=== PATIENT | male | born 1985 | race Caucasian/White ===

== ENCOUNTER 2017-11-30 20:06 | Emergency (ER) | payer OTHER, BC ==
[2017-11-30 20:59] VITALS: BP 144/85; PULSE 79; RESP 20; TEMP 98.3
[2017-11-30] MEDS ORDERED: IBUPROFEN 400 MG TAB PO STA (21:40)
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
== END 2017-11-30 22:40 | disposition home or self-care (01) ==
LOC: EC 20:06
DX: S39.012A Strain of muscle, fascia and tendon of lower back, initial encounter (principal); V49.49XA Driver injured in collision with other motor vehicles in traffic accident, initial encounter; X50.0XXA Overexertion from strenuous movement or load, initial encounter; Y92.89 Other specified places as the place of occurrence of the external cause; Y93.89 Activity, other specified
CPT/HCPCS: 72100; 99284

== ENCOUNTER 2018-09-20 19:50 | Emergency (ER) | payer BC, OTHER ==
[2018-09-20 20:08] VITALS: TEMP 98.6
[2018-09-20] MEDS ORDERED: KETOROLAC 30 MG/ML 1 ML VIAL IM STA (21:09)
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
[2018-09-20 22:27] VITALS: BP 125/80; PULSE 85; RESP 16
== END 2018-09-20 22:25 | disposition home or self-care (01) ==
LOC: EC 19:50
DX: M54.5 Low back pain (principal); V49.59XA Passenger injured in collision with other motor vehicles in traffic accident, initial encounter; Y92.410 Unspecified street and highway as the place of occurrence of the external cause
CPT/HCPCS: 72131; 99284; 96372; J1885

== ENCOUNTER 2019-04-27 13:13 | Emergency (ER) | payer BC, OTHER ==
[2019-04-27 13:22] VITALS: TEMP 97.8
--- NOTE | 2019-04-27 14:19 | ED ---
General Adult HPI - General Chief complaint: Chest Pain Stated complaint: patient states he keeps passing out Time Seen by Provider: 04/27/19 14:00 Source: patient, RN notes reviewed, old records reviewed Mode of arrival: wheelchair Limitations: no limitations - History of Present Illness Initial comments: This is a 33-year-old male who presents to the emergency department complaining of almost passing out the shower. Patient states last night he was in the shower and all of a sudden he got lightheaded and fell out of the shower. Patient states he never actually went completely unresponsive but breathing did go black for just a second. Patient states he bumped the right side of his head but it does not hurt. Patient denies any neck pain patient isn't numbness weakness. Patient denies any palpitations. Patient denies any chest pain currently patient states he has had some episodes of sharp chest pain on the left that lasted a few seconds over the last few days but nothing that is been longer than a few seconds. Patient denies any difficulty breathing or shortness of breath. Patient states currently he is asymptomatic. Patient states this morning he had another episode where he felt a little lightheaded and that concerned so decided come to the emergency department. Patient states he has some right-sided scalp tenderness from where he bumped his head but it's very minimal. - Related Data Home Medications Medication Instructions Recorded Confirmed Baclofen 10 mg PO HS PRN 11/30/17 09/20/18 Previous Rx's Medication Instructions Recorded Cyclobenzaprine [Flexeril] 10 mg PO TID PRN #15 tab 09/20/18 Allergies Allergy/AdvReac Type Severity Reaction Status Date / Time No Known Allergies Allergy Verified 04/27/19 13:21 Review of Systems ROS Statement: Those systems with pertinent positive or pertinent negative responses have been documented in the HPI. ROS Other: All systems not noted in ROS Statement are negative. Past Medical History Past Medical History: No Reported History Additional Past Medical History / Comment(s): back pain History of Any Multi-Drug Resistant Organisms: None Reported Past Surgical History: Adenoidectomy, Tonsillectomy Past Psychological History: No Psychological Hx Reported Smoking Status: Never smoker Past Alcohol Use History: Occasional Past Drug Use History: None Reported General Exam - General Exam Comments Initial Comments: GENERAL: Patient is well-developed and well-nourished. Patient is nontoxic and well- hydrated and is in no acute distress. ENT: Neck is soft and supple. No significant lymphadenopathy is noted. Oropharynx is clear. Moist mucous membranes. Neck has full range of motion without eliciting any pain. EYES: The sclera were anicteric and conjunctiva were pink and moist. Extraocular movements were intact and pupils were equal round and reactive to light. Eyelids were unremarkable. PULMONARY: Unlabored respirations. Good breath sounds bilaterally. No audible rales rhonchi or wheezing was noted. CARDIOVASCULAR: There is a regular rate and rhythm without any murmurs gallops or rubs. ABDOMEN: Soft and nontender with normal bowel sounds. No palpable organomegaly was noted. There is no palpable pulsatile mass. SKIN: Skin is clear with no lesions or rashes and otherwise unremarkable. NEUROLOGIC: Patient is alert and oriented x3. Cranial nerves II through XII are grossly intact. Motor and sensory are also intact. Normal speech, volume and content. Symmetrical smile. MUSCULOSKELETAL: Normal extremities with adequate strength and full range of motion. No lower extremity swelling or edema. No calf tenderness. LYMPHATICS: No significant lymphadenopathy is noted PSYCHIATRIC: Normal psychiatric evaluation. Limitations: no limitations Course Vital Signs 04/27/19 04/27/19 04/27/19 13:18 14:35 15:21 Temperature 97.8 F Pulse Rate 75 69 Pulse Rate [ 80 Sitting] Pulse Rate [ 73 Standing] Pulse Rate [ 75 Supine] Respiratory 18 16 Rate Blood Pressure 111/75 108/69 Blood Pressure 106/64 [Sitting] Blood Pressure 116/89 [Standing] Blood Pressure 117/76 [Supine] O2 Sat by Pulse 96 98 Oximetry Medical Decision Making - Medical Decision Making Patient's orthostatics were normal. Patient did have however have a vasovagal episode when the IV was being started. Chest shows no acute abnormality. Patient's been asymptomatic throughout his duration emergency department. - Lab Data Result diagrams: 04/27/19 14:45 04/27/19 14:45 Lab Results 04/27/19 04/27/19 04/27/19 Range/Units 14:45 14:45 14:45 WBC 7.4 (3.8-10.6) k/uL RBC 5.59 (4.30-5.90) m/uL Hgb 16.4 (13.0-17.5) gm/dL Hct 49.2 (39.0-53.0) % MCV 87.9 (80.0-100.0) fL MCH 29.3 (25.0-35.0) pg MCHC 33.3 (31.0-37.0) g/dL RDW 12.4 (11.5-15.5) % Plt Count 368 (150-450) k/uL Neutrophils % 62 % Lymphocytes % 26 % Monocytes % 7 % Eosinophils % 1 % Basophils % 3 % Neutrophils # 4.5 (1.3-7.7) k/uL Lymphocytes # 1.9 (1.0-4.8) k/uL Monocytes # 0.5 (0-1.0) k/uL Eosinophils # 0.1 (0-0.7) k/uL Basophils # 0.2 (0-0.2) k/uL PT 9.9 (9.0-12.0) sec INR 0.9 (<1.2) APTT 28.3 (22.0-30.0) sec Sodium 140 (137-145) mmol/L Potassium 4.3 (3.5-5.1) mmol/L Chloride 105 (98-107) mmol/L Carbon Dioxide 27 (22-30) mmol/L Anion Gap 8 mmol/L BUN 15 (9-20) mg/dL Creatinine 0.81 (0.66-1.25) mg/dL Est GFR (CKD-EPI)AfAm >90 (>60 ml/min/1.73 sqM) Est GFR (CKD-EPI)NonAf >90 (>60 ml/min/1.73 sqM) Glucose 100 H (74-99) mg/dL Calcium 9.7 (8.4-10.2) mg/dL Magnesium 2.1 (1.6-2.3) mg/dL Total Bilirubin 0.6 (0.2-1.3) mg/dL AST 31 (17-59) U/L ALT 45 (4-49) U/L Alkaline Phosphatase 64 (38-126) U/L Troponin I (0.000-0.034) ng/mL Total Protein 8.3 H (6.3-8.2) g/dL Albumin 4.9 (3.5-5.0) g/dL 04/27/19 Range/Units 14:45 WBC (3.8-10.6) k/uL RBC (4.30-5.90) m/uL Hgb (13.0-17.5) gm/dL Hct (39.0-53.0) % MCV (80.0-100.0) fL MCH (25.0-35.0) pg MCHC (31.0-37.0) g/dL RDW (11.5-15.5) % Plt Count (150-450) k/uL Neutrophils % % Lymphocytes % % Monocytes % % Eosinophils % % Basophils % % Neutrophils # (1.3-7.7) k/uL Lymphocytes # (1.0-4.8) k/uL Monocytes # (0-1.0) k/uL Eosinophils # (0-0.7) k/uL Basophils # (0-0.2) k/uL PT (9.0-12.0) sec INR (<1.2) APTT (22.0-30.0) sec Sodium (137-145) mmol/L Potassium (3.5-5.1) mmol/L Chloride (98-107) mmol/L Carbon Dioxide (22-30) mmol/L Anion Gap mmol/L BUN (9-20) mg/dL Creatinine (0.66-1.25) mg/dL Est GFR (CKD-EPI)AfAm (>60 ml/min/1.73 sqM) Est GFR (CKD-EPI)NonAf (>60 ml/min/1.73 sqM) Glucose (74-99) mg/dL Calcium (8.4-10.2) mg/dL Magnesium (1.6-2.3) mg/dL Total Bilirubin (0.2-1.3) mg/dL AST (17-59) U/L ALT (4-49) U/L Alkaline Phosphatase (38-126) U/L Troponin I <0.012 (0.000-0.034) ng/mL Total Protein (6.3-8.2) g/dL Albumin (3.5-5.0) g/dL Disposition Clinical Impression: Near syncope Disposition: HOME SELF-CARE Condition: Good Instructions (If sedation given, give patient instructions): Near Syncope (ED) Additional Instructions: Patient should follow-up with his doctor for further evaluation and a possible event monitor Is patient prescribed a controlled substance at d/c from ED?: No Referrals: Johanna Garvin MD [Primary Care Provider] - 1-2 days Time of Disposition: 15:46
[2019-04-27 14:55] LABS: Basophils # (A) 0.2 k/uL (0-0.2); Basophils % (A) 3 %; Eosinophils # (A) 0.1 k/uL (0-0.7); Eosinophils % (A) 1 %; HCT 49.2 % (39.0-53.0); HGB 16.4 gm/dL (13.0-17.5); Lymphocytes # (A) 1.9 k/uL (1.0-4.8); Lymphocytes % (A) 26 %; MCH 29.3 pg (25.0-35.0); MCHC 33.3 g/dL (31.0-37.0); MCV 87.9 fL (80.0-100.0); Mean Platelet Volume 6.5; Monocytes # (A) 0.5 k/uL (0-1.0); Monocytes % (A) 7 %; Neutrophils # (A) 4.5 k/uL (1.3-7.7); Neutrophils % (A) 62 %; Platelet Count 368 k/uL (150-450); RBC 5.59 m/uL (4.30-5.90); RDW 12.4 % (11.5-15.5); WBC 7.4 k/uL (3.8-10.6)
[2019-04-27 14:58] VITALS: RESP 16
[2019-04-27 15:05] LABS: ALT 45 U/L (4-49); AST 31 U/L (17-59); African American GFR (CKD) >90 (>60 ml/min/1.73 sqM); Albumin 4.9 g/dL (3.5-5.0); Alkaline Phosphatase 64 U/L (38-126); Anion Gap 8 mmol/L; Blood Urea Nitrogen 15 mg/dL (9-20); Calcium 9.7 mg/dL (8.4-10.2); Carbon Dioxide 27 mmol/L (22-30); Chloride 105 mmol/L (98-107); Glucose 100 mg/dL (74-99); Magnesium 2.1 mg/dL (1.6-2.3); Non-African American GFR(CKD) >90 (>60 ml/min/1.73 sqM); Potassium 4.3 mmol/L (3.5-5.1); Sodium 140 mmol/L (137-145); Total Bilirubin 0.6 mg/dL (0.2-1.3); Total Protein 8.3 g/dL (6.3-8.2)
[2019-04-27 15:08] LABS: INR 0.9 (<1.2); Partial Thromboplastin Time 28.3 sec (22.0-30.0); Prothrombin Time 9.9 sec (9.0-12.0)
--- NOTE | 2019-04-27 15:10 | XR ---
EXAMINATION TYPE: XR chest 2V DATE OF EXAM: 04/27/2019 COMPARISON: None INDICATION: Chest pain TECHNIQUE: Frontal and lateral views of the chest are obtained. FINDINGS: The heart size is normal. The pulmonary vasculature is normal. Minimal bilateral lung base platelike atelectasis is present.. IMPRESSION: 1. Mild bibasilar platelike atelectasis
[2019-04-27 15:23] VITALS: BP 117/76; PULSE 75
== END 2019-04-27 16:17 | disposition home or self-care (01) ==
LOC: EC 13:13
DX: R55 Syncope and collapse (principal); S09.90XA Unspecified injury of head, initial encounter; R07.9 Chest pain, unspecified; W18.2XXA Fall in (into) shower or empty bathtub, initial encounter; Y92.89 Other specified places as the place of occurrence of the external cause
CPT/HCPCS: 36415; 71046; 80053; 83735; 84484; 85025; 85610; 85730; 93005; 99285

== ENCOUNTER → 2019-05-06 | Outpatient (CLI) | payer BC ==
--- NOTE | 2019-05-08 17:00 | ECHOF ---
Referral Reason:Syncope R55 MEASUREMENTS -------- HEIGHT: 172.7 cm WEIGHT: 90.7 kg BP: RVIDd: 3.3 cm (< 3.3) IVSd: 0.8 cm (0.6 - 1.1) LVIDd: 4.3 cm (3.9 - 5.3) LVPWd: 1.0 cm (0.6 - 1.1) IVSs: 1.1 cm LVIDs: 3.5 cm LVPWs: 1.1 cm LA Diam: 3.4 cm (2.7 - 3.8) LAESV Index (A-L): 22.24 ml/m Ao Diam: 2.6 cm (2.0 - 3.7) AV Cusp: 1.8 cm (1.5 - 2.6) LA Diam: 3.6 cm (2.7 - 3.8) MV EXCURSION: 21.562 mm (> 18.000) MV EF SLOPE: 102 mm/s (70 - 150) EPSS: 0.3 cm MV E Joe: 0.58 m/s MV DecT: 196 ms MV A Joe: 0.63 m/s MV E/A Ratio: 0.92 RAP: 5.00 mmHg RVSP: 14.84 mmHg FINDINGS -------- Sinus rhythm. This was a technically good study. The left ventricular size is normal. Overall left ventricular systolic function is mildly impaired with, an EF between 45 - 50 %. The diastolic filling pattern is normal for the age of the patient 8 .58. The right ventricle is normal in size. The left atrial size is normal. Normal LA size by volume 22+/-6 ml/m2. The right atrial size is normal. The aortic valve is trileaflet, and appears structurally normal. No aortic stenosis or regurgitation. Mild mitral regurgitation is present. Mild tricuspid regurgitation present. Right ventricular systolic pressure is normal at < 35 mmHg. There is no evidence of pulmonary hypertension. There is no pulmonic regurgitation present. The aortic root size is normal. There is no pericardial effusion. CONCLUSIONS -------- 1. Sinus rhythm. 2. This was a technically good study. 3. The left ventricular size is normal. 4. Overall left ventricular systolic function is mildly impaired with, an EF between 45 - 50 %. 5. The diastolic filling pattern is normal for the age of the patient 8.58 6. The right ventricle is normal in size. 7. The left atrial size is normal. 8. Normal LA size by volume 22+/-6 ml/m2. 9. The right atrial size is normal. 10. Mild mitral regurgitation is present. 11. Mild tricuspid regurgitation present. 12. Right ventricular systolic pressure is normal at < 35 mmHg. 13. There is no evidence of pulmonary hypertension. 14. There is no pulmonic regurgitation present. 15. The aortic root size is normal. 16. There is no pericardial effusion. LINEN CLERK: Autumn Lopez RDCS
--- NOTE | 2019-05-18 07:51 | P.PN ---
Progress Note - Text Progress Note Date: 05/18/19 This is a report on the seven-day event monitor. Baseline her rhythm seemed to be sinus. Patient remained in sinus rhythm with episodes of sinus tachycardia. No ventricular arrhythmias are detected. Patient complained of chest pain, pressure, dizziness, lightheadedness, not correlating with any significant cardiac events. Final impression: #1. Sinus rhythm. #2 episodes of sinus tachycardia #3. Symptoms of chest pain, dizziness, not correlating with insignificant cardiac events
--- NOTE | 2019-05-19 16:45 | EM ---
This is a report on the seven-day event monitor. Baseline her rhythm seemed to be sinus. Patient remained in sinus rhythm with episodes of sinus tachycardia. No ventricular arrhythmias are detected. Patient complained of chest pain, pressure, dizziness, lightheadedness, not correlating with any significant cardiac events. Final impression: #1. Sinus rhythm. #2 episodes of sinus tachycardia #3. Symptoms of chest pain, dizziness, not correlating with insignificant cardiac events MTDD
== END | disposition home or self-care (01) ==
LOC: RADECHMAIN 12:26
PROVIDERS: ATTEND Internal Medicine
DX: I08.1 Rheumatic disorders of both mitral and tricuspid valves (principal); R55 Syncope and collapse
CPT/HCPCS: 93270; 93306

== ENCOUNTER 2019-06-09 11:35 | Day surgery (SDC) | payer BC ==
[2019-06-07 10:59] VITALS: BMI 31.0
[~2019-06-09 11:35] MED LIST: SODIUM CHLORIDE 0.9% 1,000 ML IV SCH
[2019-06-09] MEDS ORDERED: SODIUM CHLORIDE 0.9% 500 ML 500 ML IV ONE (11:57)
[2019-06-09 12:08] VITALS: BP 129/70; RESP 16; TEMP 97.8
[2019-06-09 14:00] VITALS: PULSE 65
--- NOTE | 2019-06-09 14:57 | P.PCN ---
Preoperative Diagnosis: Indication: Syncope Baseline 12-lead EKG shows sinus mechanism, history VT interval at the upper limits of normal, normal narrow QRS, normal ST segments, normal QT interval, no delta or epsilon waves Baseline blood pressures 121/78 mmHg, Baseline heart rate is 70 bpm. The patient was tilted upright at a 70 angle aspirin protocol. After 10 minutes, the patient's heart rate gradually increased and blood pressure suddenly dropped, lowest blood pressure was 70/40 and the patient felt like he was going to pass out. He was laid flat and his blood pressure returned to 123/68 and his pulse came down to the 70s. He felt much better after being laid flat. Impression Neurocardiogenic response to upright tilting Normal 12-lead EKG
== END 2019-06-09 14:18 | disposition home or self-care (01) ==
LOC: CATHEP 11:35
PROVIDERS: ATTEND Internal Medicine Clinical Cardiac Electrophysiology
DX: R55 Syncope and collapse (principal); I42.0 Dilated cardiomyopathy; R07.89 Other chest pain; Z79.899 Other long term (current) drug therapy
CPT/HCPCS: 93660

== ENCOUNTER → 2020-03-07 | Outpatient (CLI) | payer BC ==
[2020-03-07 14:48] LABS: Basophils # (A) 0.1 k/uL (0-0.2); Basophils % (A) 1 %; Eosinophils # (A) 0.1 k/uL (0-0.7); Eosinophils % (A) 1 %; HCT 50.7 % (39.0-53.0); HGB 16.9 gm/dL (13.0-17.5); Lymphocytes # (A) 2.5 k/uL (1.0-4.8); Lymphocytes % (A) 31 %; MCHC 33.4 g/dL (31.0-37.0); MCV 89.8 fL (80.0-100.0); Mean Platelet Volume 6.4; Monocytes # (A) 0.5 k/uL (0-1.0); Monocytes % (A) 6 %; Neutrophils # (A) 4.8 k/uL (1.3-7.7); Neutrophils % (A) 60 %; Platelet Count 397 k/uL (150-450); RBC 5.64 m/uL (4.30-5.90); RDW 12.1 % (11.5-15.5)
== END | disposition home or self-care (01) ==
LOC: LABPAT 13:15
PROVIDERS: ATTEND Student in an Organized Health Care Education/Training Program
DX: Z01.818 Encounter for other preprocedural examination (principal)
CPT/HCPCS: 36415; 85025

== ENCOUNTER 2020-03-09 11:32 | Day surgery (SDC) | payer BC ==
[2020-03-07 12:41] VITALS: BMI 31.0
[~2020-03-09 11:32] MED LIST changes: +DEXAMETHASONE SOD PHOSPHATE 4 MG/ML 1 ML VIAL IV ONE; +HEPARIN SODIUM,PORCINE 5,000 UNIT/ML 1 ML VIAL SQ ONE; +LACTATED RINGERS 1,000 ML IV SCH; +MIDAZOLAM 2 MG/2 ML VIAL IV PRN; +ONDANSETRON 4 MG/2 ML VIAL IVP ONE; +SCOPOLAMINE 1.5MG/72HR PATCH TRANSDERM ONE; -SODIUM CHLORIDE 0.9% 1,000 ML IV SCH
[2020-03-09] MEDS ORDERED: LIDOCAINE 1% (10MG/ML) FOR IV START INTRADERMA ONE (12:23)
--- NOTE | 2020-03-09 13:43 | P.ANPRN ---
Procedure Note - Anesthesia - Nerve Block Performed Bilateral Erector Spinae Single Time Out Performed: Yes Date of Procedure: 03/09/20 Procedure Start Time: 12:50 Procedure Stop Time: 13:04 Location of Patient: PreOp Indication: Acute Post-Operative Pain, Requested by Surgeon Sedation Type: Sedate with meaningful contact maintained Preparation: Sterile Prep, Sterile Dressing Position: Sitting Catheter: None Needle Types: Pajunk Needle Gauge: 20 Ultrasound used to visualize needle placement: Yes Ultrasound used to observe medication spread: Yes Injectate: 0.5% Ropivacaine (see comment for volume) (15 ml per side + decadron 4 mg) Blood Aspirated: No Pain Paresthesia on Injection Noted: No Resistance on Injection: Normal Image Stored and Saved: Yes Events: Uneventful and Well Tolerated
[2020-03-09] MEDS ORDERED: LIDOCAINE 1% INJ 10MG/ML (20 ML MDV) ONE (14:30)
[2020-03-09] MEDS ORDERED: ROPIVACAINE 5 MG/ML 30 ML VIAL ONE (14:30)
[2020-03-09] MEDS ORDERED: ROCURONIUM 10 MG/ML (10 ML VIAL) IV ONE (14:30)
[2020-03-09] MEDS ORDERED: NEOSTIGMINE 1 MG/ML 10 ML VIAL ONE (14:30)
[2020-03-09] MEDS ORDERED: DEXAMETHASONE SOD PHOSPHATE 4 MG/ML 1 ML VIAL ONE (14:30)
[2020-03-09] MEDS ORDERED: KETAMINE 10 MG/ML 20 ML VIAL ONE (14:30)
[2020-03-09] MEDS ORDERED: GLYCOPYRROLATE 0.2 MG/ML 2 ML VIAL ONE (14:30)
[2020-03-09] MEDS ORDERED: MIDAZOLAM 2 MG/2 ML VIAL ONE (14:30)
[2020-03-09] MEDS ORDERED: fentaNYL (PF) 50 MCG/ML 2 ML AMP ONE (14:30)
[2020-03-09] MEDS ORDERED: PROPOFOL 10 MG/ML 20 ML VIAL IV ONE (14:30)
[2020-03-09] MEDS ORDERED: BUPIVACAINE (PF) 0.25% 30 ML VIAL SQ ONE ×3 (14:35→14:56)
[2020-03-09] MEDS ORDERED: LACTATED RINGERS 1,000 ML IV ONE ×2 (15:15→18:00)
--- NOTE | 2020-03-09 15:32 | P.OP ---
Date of Procedure: 03/09/20 Preoperative Diagnosis: Right inguinal Postoperative Diagnosis: Right inguinal hernia Procedure(s) Performed: Robotic-assisted right inguinal hernia repair Anesthesia: MELANIE Surgeon: Ritchie Galeana Estimated Blood Loss (ml): 5 Condition: stable Disposition: PACU Description of Procedure: Patient is brought operative suite remained supine position when general endotracheal anesthesia per Department of anesthesia anesthesia timeout performed correct patient correct procedure correct site was verified. He's prepped and draped in usual sterile fashion following this a 1-1/2 cm incision was made just. Umbilicus carried down the fascia which was incised in the usual fashion and a millimeters port was placed the abdomen was insufflated no injuries were noted lateral to this on either side 8 mm ports were placed in the robot was docked. There was noted only be a defect on the right side the peritoneum was taken down the defect was reduced and the dissection was carried out laterally and posteriorly to the psoas medially to the tubes. A right-sided mesh was placed in the peritoneum was then reapproximated using 3-0V lock suture. The fascia in the midline was closed with a 0 Vicryl with the aid of a Femi-Mitesh suture passer. The abdomen was desufflated all ports removed under direct visualization hemostasis was noted the skin was closed with 4-0 Monocryl sutures and skin glue. Patient tolerated the procedure well no apparent complications Plan - Discharge Summary Discharge Rx Participant: Yes New Discharge Prescriptions: New HYDROcodone/APAP 5-325MG [[place] 5-325] 1 tab PO Q4HR PRN 3 Days #18 tab PRN Reason: Pain No Action Midodrine(Dose Unknown) 1 tab PO BID Discharge Medication List Midodrine(Dose Unknown) 1 tab PO BID 03/07/20 [History] HYDROcodone/APAP 5-325MG [[place] 5-325] 1 tab PO Q4HR PRN 3 Days #18 tab 03/09/20 [Rx] Follow up Appointment(s)/Referral(s): Ritchie Galeana DO [Doctor of Osteopathic Medicine] - 1 Week Activity/Diet/Wound Care/Special Instructions: No lifting over 15lbs for 5 weeks Patient may shower tomorrow no baths or swimming for 3 weeks Discharge Disposition: HOME SELF-CARE
[2020-03-09 16:06] VITALS: TEMP 97
[2020-03-09] MEDS: HYDROmorphone 0.5 MG/0.5 ML SYRINGE IVP PRN ×2 (16:27→16:32)
[2020-03-09] MEDS ORDERED: KETOROLAC 15 MG/ML 1 ML VIAL IVP ONE (16:32)
[2020-03-09 17:18] VITALS: RESP 16
[2020-03-09] MEDS ORDERED: HYDROcodone/APAP 5-325MG 1 EACH TAB ONE (17:24)
[2020-03-09] MEDS ORDERED: HYDROcodone/APAP 5-325MG 1 EACH TAB PO ONE (17:30)
[2020-03-09 17:42] VITALS: PULSE 96
[2020-03-09 18:13] VITALS: BP 123/76
== END 2020-03-09 19:12 | disposition home or self-care (01) ==
LOC: OR 11:32
PROVIDERS: ATTEND Student in an Organized Health Care Education/Training Program
DX: K40.90 Unilateral inguinal hernia, without obstruction or gangrene, not specified as recurrent (principal); I50.9 Heart failure, unspecified; G43.909 Migraine, unspecified, not intractable, without status migrainosus; Z79.899 Other long term (current) drug therapy; Z82.49 Family history of ischemic heart disease and other diseases of the circulatory system; Z98.890 Other specified postprocedural states
CPT/HCPCS: 49650; 64461; 86900; 86901; 86850; C1781; J2250; J1644; J1100; J2710; J0690; J2405; J2001; J3010; J2795; J1885; J2704; J1170

== ENCOUNTER → 2020-11-05 | Outpatient (CLI) | payer OTHER ==
--- NOTE | 2020-11-05 16:10 | NM ---
EXAMINATION TYPE: NM bone scan whole body, NM bone SPECT DATE OF EXAM: 11/05/2020 COMPARISON: None HISTORY: M54.5 Low back pain M54.16 Radiculopathy Delayed whole-body scanning was performed following the injection of 24.3 mCi Tc 99m MDP. Images acq uired 3 hours post injection. SPECT imaging was obtained through the lumbar spine. FINDINGS: Soft tissue uptake is normal. Uptake is noted at the level of the inferior pubic ramus on the left. N o areas of abnormal increased or decreased radio pharmaceutical uptake are otherwise noted. IMPRESSION: No significant uptake is noted within the spine. Uptake along the inferior pubic ramus on the left co uld be urine contamination.
== END | disposition home or self-care (01) ==
LOC: RADNMMAIN 10:49
PROVIDERS: ATTEND Orthopaedic Surgery Orthopaedic Surgery of the Spine
DX: M54.16 Radiculopathy, lumbar region (principal)
CPT/HCPCS: 78306; 78803; A9503

== ENCOUNTER → 2020-11-30 | Outpatient (CLI) | payer OTHER ==
--- NOTE | 2020-11-30 07:55 | CT ---
EXAMINATION TYPE: CT lumbar spine wo con DATE OF EXAM: 11/30/2020 7:42 AM COMPARISON: CT lumbar spine September 20, 2018 HISTORY: Low back pain, radiculopathy, spondylolysis CT DLP: 533.40 mGycm Automated exposure control for dose reduction was used. Unenhanced CT of the lumbar spine was performed. Bone and soft tissue window settings are submitted as well as coronal and sagittal reconstructions. There are 5 lumbar type vertebra redemonstrated. Alignment is satisfactory and stable. Mild disc spac e narrowing L5-S1 level again seen. Vertebral body heights maintained. No pars defect noted. Review of axial images shows T12-L1 through the L3-L4 levels to remain within normal limits. Axial images at L4-L5 level show mild broad disc bulge minimally effacing the anterior thecal sac, pa tent bilateral neural foramina. Axial images at L5-S1 level redemonstrate focal right paracentral disc protrusion on axial image 66, spinal canal is preserved. Bilateral neural foramina remain patent. Paraspinal muscle bulk is maintained. IMPRESSION: Mild degenerative changes lower lumbar spine without significant change from 2019 CT. No large disc herniation identified.
== END | disposition home or self-care (01) ==
LOC: RADCTMAIN 07:22
PROVIDERS: ATTEND Orthopaedic Surgery Orthopaedic Surgery of the Spine
DX: M47.26 Other spondylosis with radiculopathy, lumbar region (principal); M51.27 Other intervertebral disc displacement, lumbosacral region
CPT/HCPCS: 72131